=== PATIENT | male | born 1985 | race American Indian/Alaskan Native ===

== ENCOUNTER 2021-06-06 18:08 | Emergency (ER) | payer OTHER ==
[2021-06-06 18:19] VITALS: BP 141/86
--- NOTE | 2021-06-06 18:19 | Emergency Department Report ---
ED Lower Extremity HPI - General Chief Complaint: Extremity Injury, Lower Stated Complaint: LEG PAIN Time Seen by Provider: 06/06/21 18:17 Source: patient Mode of arrival: Ambulatory Limitations: No Limitations - History of Present Illness Initial Comments: Patient presents with right foot pain. Is nontraumatic in nature. At least, he does not recall an injury. He had an injury several years ago for playing soccer. He thinks that he may have exacerbated that injury. That was related to a ligamentous injury. Patient does report that he moves things with his foot at work. He started having pain in the dorsum of the right foot over the last 2 days. It is gotten worse today. He has been having difficulty standing due to pain. Pain is worse upon standing and walking. He states the pain is constant otherwise. There is no fevers or chills. No ankle pain. There is no knee pain. No calf pain. - Related Data Previous Rx's Medication Instructions Recorded Last Taken Type Ibuprofen [Motrin] 800 mg PO Q8HR PRN #30 tablet 06/06/21 Unknown Rx Allergies Allergy/AdvReac Type Severity Reaction Status Date / Time No Known Allergies Allergy Unverified 06/06/21 18:17 ED Review of Systems ROS: Stated complaint: LEG PAIN Other details as noted in HPI Comment: All other systems reviewed and negative Constitutional: denies: fever ENT: denies: throat pain Respiratory: denies: cough Cardiovascular: denies: chest pain Gastrointestinal: denies: abdominal pain Musculoskeletal: as per HPI Skin: denies: rash Neurological: denies: numbness Hematological/Lymphatic: denies: easy bruising ED Past Medical Hx - Past Medical History Previous Medical History?: No - Family History Family history: no significant - Medications Home Medications: Home Medications Medication Instructions Recorded Confirmed Last Taken Type Ibuprofen [Motrin] 800 mg PO Q8HR PRN #30 tablet 06/06/21 Unknown Rx ED Physical Exam - General Limitations: No Limitations, Other (Pulse ox noted and normal) General appearance: alert, in no apparent distress, other (Uncomfortable) - Head Head exam: Present: atraumatic, normocephalic - Eye Eye exam: Present: normal appearance, EOMI - ENT ENT exam: Present: normal external ear exam - Neck Neck exam: Present: normal inspection - Respiratory Respiratory exam: Absent: respiratory distress - Cardiovascular Cardiovascular Exam: Absent: JVD - Extremities Exam Extremities exam: Present: normal capillary refill, other (There is tenderness diffusely with palpation of the dorsum of the right foot. There is no warmth or erythema. Pulses are equal and symmetric. There is no edema. Patient has no deformity. There is no ankle tenderness. There is no plantar wound or ulcer.) - Back Exam Back exam: Present: full ROM - Neurological Exam Neurological exam: Present: alert, oriented X3, abnormal gait (Antalgic). Absent: motor sensory deficit - Psychiatric Psychiatric exam: Present: normal affect, normal mood - Skin Skin exam: Present: warm, dry ED Course Vital Signs 06/06/21 18:17 Temperature 98.4 F Pulse Rate 74 Respiratory 16 Rate Blood Pressure 141/86 [Right] O2 Sat by Pulse 98 Oximetry - Reevaluation(s) Reevaluation #1: 06/06/21 19:12 Patient was discharged ED Lower Extremity MDM - Medical Decision Making Patient presented with nontraumatic right foot pain. There is no suspicion for fracture or dislocation. He does not have any neurovascular compromise. Not concerned for any type of ischemic or arterial thrombus in the foot. Patient does not have warmth or erythema suggestive of cellulitis. There is no ankle involvement. He does not have isolation of symptoms to the right great toe suggestive of gout. He was treated symptomatically and referred. Critical Care Time: No Critical care attestation.: If time is entered above; I have spent that time in minutes in the direct care of this critically ill patient, excluding procedure time. ED Disposition Clinical Impression: Tendinitis of right foot Disposition: HOME / SELF CARE / HOMELESS Is pt being admited?: No Condition: Stable Additional Instructions: Ice and elevate. Use Tylenol at home. Return for problems. Follow-up with your regular doctor or the referral doctor. Prescriptions: Ibuprofen [Motrin] 800 mg PO Q8HR PRN #30 tablet PRN Reason: Pain, Moderate (4-6) Referrals: PRIMARY CAREMD [Primary Care Provider] - 3-5 Days CARL ARTEAGA MD [Staff Physician] - 3-5 Days Forms: Work/School Release Form(ED)
== END 2021-06-06 19:13 | disposition home or self-care (01) ==
LOC: ED 18:08
DX: M65.271 Calcific tendinitis, right ankle and foot (principal)
CPT/HCPCS: 99282